=== PATIENT | male | born 1950 | race Caucasian/White ===

== ENCOUNTER → 2016-11-30 | Outpatient (CLI) | payer OTHER ==
[~2016-11-30] MED LIST: AMLODIPINE-BENA1 CA3 PO; CHOLEST OFF PL450 MG PO; CLARITIN10 M2 PO; FISH OIL500 MG PO; MOBIC15 MG PO; PRILOSEC20 MG PO; TYLENOL #3 PO; ZOFRAN ODT4 MG PO
== END | disposition home or self-care (01) ==
LOC: CRC 12:35
DX: R06.00 Dyspnea, unspecified (principal)
CPT/HCPCS: 94060; 94726; 94729

== ENCOUNTER → 2016-12-16 | Outpatient (CLI) | payer OTHER ==
--- NOTE | ~2016-12-16 | CT57 ---
[facility] A Service of [facility] & [facility] RADIOLOGY TEXT RESULTS PATIENT: MORRIS MONTIEL [facility] 54 UNIT #: [id number] AGE: [address]: Ritu Aldrich MD SEX: M ORDER DR: [id number] [facility] [address] [place], [place] [address] [id number] O MR#: [id number] Acc #: [id number] NAME: MORRIS MONTIEL : 1950 SEX: M STUDY DATE/TIME: 12/16/2016 13:24 UNIT: [facility] ROOM: STUDY DESCRIPTION: CT Chest Wo Cont Attending Physician: Ritu Aldrich M.D. Referring Physician: Ritu Aldrich M.D. Ordering Physician: Ritu Aldrich M.D. Primary Care Physician: Sukhdeep Hernandez M.D. MEDICAL IMAGING REPORT This report is preliminary unless electronic signature is present EXAM CT of the chest without contrast. INDICATIONS Dyspnea and cough for 1 year, as well as back pain. TECHNIQUE Axial CT images were obtained from the thoracic inlet through the dome of the diaphragm. No intravenous contrast material was administered. This CT exam was performed with one or more of the following radiation dose reduction techniques: automatic exposure control, adjustment of mA and/or kV according to patient size, and iterative reconstruction. FINDINGS Background emphysematous changes are noted. Patient is again noted to have scarring at the lung bases bilaterally. Similar findings were present in April of 2016, but I think they have worsened when compared to that study. It really has the appearance of some evolving fibrotic change. Particularly, in the right lower lobe there is an area which has a more nodular configuration measuring up to 1.8 x 1 cm. Low-attenuation lesion is identified within the left lobe of the thyroid incompletely characterized on this study. The trachea and esophagus appear unremarkable. There is no pleural or pericardial effusion. Mediastinal lymph nodes do not appear pathologically enlarged. Thoracic aorta measures within normal size limits. Images through the upper abdomen demonstrate a nonobstructing stone within the left kidney. There is also probably a left renal cyst. Areas of cortical thinning are seen within the right kidney which may reflect sequela of prior insults. Areas of low attenuation are identified within the liver. Some of these are too small to accurately characterize. The largest is favored to represent a cyst. They are felt to be benign. No STS. [facility] A Service of [facility] & [facility] RADIOLOGY TEXT RESULTS PATIENT: MORRIS OMNTIEL LOCATION: [facility] : 54 UNIT #: [id number] AGE: [address]: Ritu Aldrich MD SEX: M ORDER DR: acute abnormalities are seen within the upper abdomen. Review of bony windows does not demonstrate any aggressive osseous abnormalities. 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 IMPRESSION 1. Background emphysematous changes are again seen. There is patchy linear areas of consolidation identified at the lung bases bilaterally. This is more pronounced than on the prior study from April 2016, but comparable findings were present in September of 2015. The waxing and waning course would be more suggestive of a benign process, such as some evolving fibrotic change. There are some areas which have a more nodular configuration, while these may simply reflect again nodular areas of scarring given background emphysematous changes, short-term CT follow up in 3 months is recommended. 2. Suspected hepatic cysts. 3. Nonobstructing left renal stones and probable left renal cyst. 4. Please see the body of the report for any other additional incidental findings. Dictated by... Nakia Sanchez M.D. THIS IS AN ELECTRONICALLY VERIFIED REPORT Nakia Sanchez M.D. at 12/18/2016 10:08 AM RUFINA/anika TD: 12/16/2016 20:45 JOB #: [id number] MEDICAL IMAGING REPORT Page 1 of 1 COPY
== END | disposition home or self-care (01) ==
LOC: CCAT 12:45
DX: R06.02 Shortness of breath (principal); R05 Cough; J18.1 Lobar pneumonia, unspecified organism; R91.1 Solitary pulmonary nodule; N20.0 Calculus of kidney; I36.1 Nonrheumatic tricuspid (valve) insufficiency
CPT/HCPCS: 71250; 93306